=== PATIENT | female | born 1960 | race Caucasian/White ===

== ENCOUNTER → 2022-08-26 | Outpatient (CLI) | payer BC | LOC: M RAD 15:55 | PROVIDERS: ATTEND Internal Medicine Hematology & Oncology | DX: N13.30 Unspecified hydronephrosis (principal); Q61.02 Congenital multiple renal cysts ==

== ENCOUNTER → 2022-11-24 | Outpatient (CLI) | payer BC | LOC: M WHC 10:37 | PROVIDERS: ATTEND Nurse Practitioner Adult Health | DX: M85.852 Other specified disorders of bone density and structure, left thigh (principal); C50.112 Malignant neoplasm of central portion of left female breast ==

== ENCOUNTER → 2024-05-08 | Outpatient (CLI) | payer BC | LOC: M WHC 07:04 | PROVIDERS: ATTEND Surgery | DX: Z12.31 Encounter for screening mammogram for malignant neoplasm of breast (principal) ==

== ENCOUNTER → 2024-08-21 | Outpatient (CLI) | payer BC, MEDICARE ==
[~2024-08-21] MED LIST: AMLO1TAB25 PO; HYDR-3490 PO; LETR2.5T2 PO; LEVO100T5 PO; OLME40TA PO
== END ==
LOC: M ONCR 14:59
PROVIDERS: ATTEND General Practice
DX: C79.2 Secondary malignant neoplasm of skin (principal); C50.912 Malignant neoplasm of unspecified site of left female breast; Z79.890 Hormone replacement therapy; Z79.899 Other long term (current) drug therapy; Z87.891 Personal history of nicotine dependence; Z90.12 Acquired absence of left breast and nipple; Z92.21 Personal history of antineoplastic chemotherapy

== ENCOUNTER → 2024-08-29 | Outpatient (RCR) | payer BC | LOC: M ONCR 08-23 10:26 | PROVIDERS: ATTEND General Practice | DX: Z51.0 Encounter for antineoplastic radiation therapy (principal); C79.2 Secondary malignant neoplasm of skin ==

== ENCOUNTER 2024-08-30 08:53 | Outpatient (RCR) | payer BC | END 2024-09-28 | LOC: M ONCR 08:53 | PROVIDERS: ATTEND General Practice | DX: Z51.0 Encounter for antineoplastic radiation therapy (principal); C79.2 Secondary malignant neoplasm of skin ==

== ENCOUNTER → 2024-10-01 | Outpatient (CLI) | payer BC, MEDICARE | LOC: M ONCR 08:01 | PROVIDERS: ATTEND General Practice | DX: L59.8 Other specified disorders of the skin and subcutaneous tissue related to radiation (principal); Z92.3 Personal history of irradiation ==

== ENCOUNTER → 2024-10-15 | Outpatient (CLI) | payer BC ==
[~2024-10-15] MED LIST changes: +TRIA1OI TOP
== END ==
LOC: M ONCR 15:15
PROVIDERS: ATTEND General Practice
DX: L59.8 Other specified disorders of the skin and subcutaneous tissue related to radiation (principal); C79.2 Secondary malignant neoplasm of skin

== ENCOUNTER → 2024-10-25 | Outpatient (CLI) | payer BC | LOC: M ONCR 07:37 | PROVIDERS: ATTEND General Practice | DX: L59.8 Other specified disorders of the skin and subcutaneous tissue related to radiation (principal); Z92.3 Personal history of irradiation ==